=== PATIENT | female | born 1985 | race Caucasian/White ===

== ENCOUNTER 2022-07-05 12:05 | Emergency (ER) | payer BC ==
[~2022-07-05] VITALS: Ht 162.6 cm; Wt 48.5 kg
[2022-07-05 12:28] VITALS: BP_SYST 127
[2022-07-05 13:33] LABS: BASOPHILS % (AUTO) 0.4 % (0.0-2.0); EOSINOPHILS % (AUTO) 0.4 % (0.0-4.0); HEMATOCRIT 41.7 % (36-48); LYMPHOCYTES # (AUTO) 1.2 K/uL (1.0-5.5); LYMPHOCYTES % (AUTO) 15.2 % (20.5-51.5); MEAN CORPUSCULAR VOLUME 82 fL (79.0-98.0); MONOCYTES # (AUTO) 0.4 K/uL (0.0-1.0); NEUTROPHILS # (AUTO) 6.4 K/uL (1.8-7.7); PLATELET COUNT (AUTO) 242 K/uL (130-430); RED BLOOD CELL COUNT(AUTO) 5.06 MIL/uL (4.2-6.2); WHITE BLOOD COUNT (AUTO) 8.1 K/uL (4.8-10.8)
--- NOTE | 2022-07-05 13:45 | NUR ---
Pt brought by self, A&Ox4, pt presents to ER with vaginal bleeding,lower back and abd pain since this am, pt states she is 6 weeks , VSS, skin pink and warm, cap refill<3.
--- NOTE | 2022-07-05 14:02 | NUR ---
Patient to ER bed 05 to gown for evaluation. Side rails up.
[2022-07-05 14:21] LABS: PROTHROMBIN TIME 10.4 SECS (9.5-12.5)
--- NOTE | 2022-07-05 14:44 | NUR ---
RECEIVED PT AT THIS TIME. PT BIBS AND HERE FOR C/O VAGINAL BLEEDING. PT IS AAOX4, RESP E/U. ON RA. NORMAL S1S2 NOTED. DENIES N/V/D/C. SKIN CDI, NO EDEMA. DENIES PAIN AT THIS TIME. SIDERAILS UP X2.
[2022-07-05 14:48] LABS: BILIRUBIN,URINE NEGATIVE (NEGATIVE); BLOOD, URINE 2+ (NEGATIVE); CLARITY/URINE SL CLOUDY (CLEAR); COLOR,URINE YELLOW (YELLOW); GLUCOSE,URINE NEGATIVE (NEGATIVE); KETONES,URINE NEGATIVE (NEGATIVE); LEUKOCYTE ESTERASE ,URINE NEGATIVE (NEGATIVE); NITRITE, URINE NEGATIVE (NEGATIVE); PH,URINE 5.5 (5.0-8.0); PROTEIN URINE NEGATIVE (NEGATIVE); UROBILINOGEN,URINE 0.2 (0.2-1.0)
--- NOTE | 2022-07-05 15:04 | NUR ---
DR FAJARDO IN TO SPEAK WITH PT REGARDING TEST RESULTS
[2022-07-05 15:31] LABS: BACTERIA,URINE FEW /HPF (None Seen); WBC,URINE 0-3 /HPF (0-3)
--- NOTE | 2022-07-05 15:49 | NUR ---
CALLED RADIOLOGY AND MADE THEM AWARE PT HAS ORDER FOR ULTRASOUND OB.
--- NOTE | 2022-07-05 16:05 | NUR ---
Patient given written and verbal discharge instructions and verbalizes understanding. ER MD discussed with patient the results and treatment provided. Patient in stable condition. ID arm band removed. Patient educated on pain management and to follow up with PMD. Pain Scale 2/10. Opportunity for questions provided and answered. Medication side effect fact sheet provided.
[2022-07-05 16:09] VITALS: BP_SYST 122
== END 2022-07-05 16:09 | disposition home or self-care (01) ==
LOC: SED 12:05
DX: O20.9 Hemorrhage in early pregnancy, unspecified (principal); Z3A.01 Less than 8 weeks gestation of pregnancy
CPT/HCPCS: 36415; 76801; 81000; 81025; 84702; 85025; 85610-TC; 85730-TC; 86900; 86901; 99284

== ENCOUNTER 2022-07-07 09:25 | Emergency (ER) | payer BC ==
[~2022-07-07] VITALS: Ht 162.6 cm; Wt 48.5 kg
[2022-07-07 09:38] VITALS: BP_SYST 115
--- NOTE | 2022-07-07 09:50 | NUR ---
DR FAJARDO AT BEDSIDE FOR EXAM
--- NOTE | 2022-07-07 09:55 | NUR ---
pT CAME TO ED AMBULATORY WITH SO FROM HOME FOR FU WITH MISCARRIAGE DX. PT WAS SEEN HERE 2 DAYS AGO FOR ABD PAIN AND DX WITH MISCARRIAGE. pT A&OX4, SITTING AT BEDSIDE, NO APPARENT DISTRESS. STATES THAT SHE HAS CONT MILD MID ABD PAIN WITH SM AMT BLOODY SPOTTING.
--- NOTE | 2022-07-07 10:00 | NUR ---
BLOOD DRAWN BY LAB
[2022-07-07 10:10] LABS: BASOPHILS % (AUTO) 0.3 % (0.0-2.0); EOSINOPHILS # (AUTO) 0.1 K/uL (0.0-0.4); EOSINOPHILS % (AUTO) 1.6 % (0.0-4.0); HEMATOCRIT 39.3 % (36-48); LYMPHOCYTES # (AUTO) 1.4 K/uL (1.0-5.5); LYMPHOCYTES % (AUTO) 27.4 % (20.5-51.5); MEAN CORPUSCULAR VOLUME 82 fL (79.0-98.0); MONOCYTES # (AUTO) 0.4 K/uL (0.0-1.0); MONOCYTES % (AUTO) 7.3 % (1.7-9.3); NEUTROPHILS # (AUTO) 3.2 K/uL (1.8-7.7); NEUTROPHILS % (AUTO) 63.4 % (40.0-70.0); PLATELET COUNT (AUTO) 212 K/uL (130-430); RED BLOOD CELL COUNT(AUTO) 4.81 MIL/uL (4.2-6.2); RED CELL DISTRIBUTION WIDTH 14.9 % (9.0-15.0); WHITE BLOOD COUNT (AUTO) 5.1 K/uL (4.8-10.8)
--- NOTE | 2022-07-07 10:55 | NUR ---
PT TO US WITH TECH. ANBULATING WITHOUT DIFF
--- NOTE | 2022-07-07 11:15 | NUR ---
pT BACK TO ROOM, NO CHANGE IN STATUS, NO APPARENT DISTRESS
--- NOTE | 2022-07-07 11:30 | NUR ---
Patient given written and verbal discharge instructions and verbalizes understanding. ER MD discussed with patient the results and treatment provided. Patient in stable condition. ID arm band removed. Rx of given. Opportunity for questions provided and answered. Medication side effect fact sheet provided.
== END 2022-07-07 11:30 | disposition home or self-care (01) ==
LOC: SED 09:25
DX: O03.9 Complete or unspecified spontaneous abortion without complication (principal)
CPT/HCPCS: 36415; 76801; 84702; 85025; 99284